=== PATIENT | female | born 1970 | race Asian ===

== ENCOUNTER 2019-07-04 10:10 | Emergency (ER) | payer OTHER ==
[~2019-07-04] VITALS: Ht 154.9 cm; Wt 48.2 kg
--- NOTE | 2019-07-04 10:49 | NUR ---
task RN note: pt presents to ED with c/o bilateral lower back pain, myalgia, and fevers x 4 days. pt states she has felt similar in the past with UTI. pt denies sore throat/cough. pt a&o, resps even and unlabored. pt ambultory to bathroom with steady gait, provided clean catch urine sample. urine sent to lab. pt attached to bp and spo2 monitors. call light in reach. warm blanket provided. report given to primary RN Sharmila.
[2019-07-04 10:53] VITALS: BP 128/74
[2019-07-04 10:58] LABS: MEAN CORPUSCULAR HEMOGLOBIN 29.1 pg (27.0-34.8); MEAN CORPUSCULAR HGB CONC 33.6 g/dL (32.4-35.8); MEAN CORPUSCULAR VOLUME 86.5 fL (80-100); MEAN PLATELET VOLUME 7.9 fL (7.4-10.4); PLATELET COUNT 299 x10^3/uL (130-400); RED BLOOD COUNT 4.68 x10^6/uL (3.82-5.3); RED CELL DISTRIBUTION WIDTH 13.3 % (9.6-15.2)
[2019-07-04 10:59] LABS: HCG UR SG 1.017 (1.003-1.030)
[2019-07-04 11:01] LABS: MICROSCOPIC INDICATED
[2019-07-04 11:06] LABS: ALANINE AMINOTRANSFERASE 16 U/L (12-78); ANION GAP 8 mmol/L (5-15); CALCIUM 7.9 mg/dL (8.5-10.1); CHLORIDE 108 mmol/L (98-107); CREATININE 0.65 mg/dL (0.55-1.02)
[2019-07-04 11:08] LABS: ALKALINE PHOSPHATASE 85 U/L (45-117); BILIRUBIN,TOTAL 0.2 mg/dL (0.2-1.0); TOTAL PROTEIN 7.6 g/dL (6.4-8.2)
[2019-07-04 11:28] LABS: MD YES
[2019-07-04 11:34] LABS: <PLATELET ESTIMATE> ADEQUATE; <PLT MORPHOLOGY> NORMAL PLT MORPH; <RBC MORPHOLOGY> NORMAL; BAND#(MANUAL) 0.08 x10^3/uL; BANDS%(MANUAL) 3 % (0-7); LYMPH#(MANUAL) 0.83 x10^3/uL (1-3.4); LYMPHS% (MANUAL) 33 % (22-44); MONOS#(MANUAL) 0.13 x10^3/uL (0.3-2.7); MONOS% (MANUAL) 5 % (2-9); SEG#(MANUAL) 1.48 x10^3/uL (1.8-6.8); SEGS% (MANUAL) 59 % (42-75)
== END 2019-07-04 12:13 | disposition home or self-care (01) ==
LOC: ED 11:45
DX: J18.9 Pneumonia, unspecified organism (principal); Z20.828 Contact with and (suspected) exposure to other viral communicable diseases; R07.9 Chest pain, unspecified
CPT/HCPCS: 36415; 71045; 80053; 81001; 81025; 85025; 99284; U0001

== ENCOUNTER 2019-07-06 10:38 | Emergency (ER) | payer OTHER ==
[~2019-07-06] VITALS: Ht 154.9 cm; Wt 48.0 kg
--- NOTE | 2019-07-06 10:47 | NUR ---
BIB [facility] FROM HOME FOR FEVER. DX WITH PNEUMONIA ON SATURDAY, DC'ED WITH RX OF ABX X2, PT UNCERTAIN OF NAME. PT CONCERNED ABOUT POSSIBILITY OF COVID. ERMD IN TO ASSESS AND EDUCATE PT. PT SHOWS NO SIGNS OF WOB. RESPIRATIONS EVEN, SATURATING WELL ON RA.
[2019-07-06] MEDS ORDERED: ACETAMINOPHEN 325 MG TABLET ONE (10:58)
[2019-07-06] MEDS ORDERED: ACETAMINOPHEN 325 MG TABLET PO ONE (11:00)
--- NOTE | 2019-07-06 11:10 | NUR ---
Pt medicated per emar. Pt educated on need to keep layers off due to fever, if she wanted this to decrease. Pt found with sweatshirt back on again. Awaiting lab and cxr results. NAD noted at this time. Side rails up, call light in reach.
[2019-07-06 11:50] LABS: BASOPHILS # (AUTO) 0.01 x10^3/uL (0-0.1); BASOPHILS % (AUTO) 0 % (0-1); EOSINOPHILS % (AUTO) 0 % (1-7); LYMPHOCYTES # (AUTO) 0.73 x10^3/uL (1-3.4); LYMPHOCYTES % (AUTO) 20 % (22-44); MD NO; MEAN CORPUSCULAR HEMOGLOBIN 29.1 pg (27.0-34.8); MEAN CORPUSCULAR HGB CONC 33.5 g/dL (32.4-35.8); MEAN PLATELET VOLUME 7.7 fL (7.4-10.4); MONOCYTES % (AUTO) 6 % (2-9); NEUTROPHILS # (AUTO) 2.75 x10^3/uL (1.8-6.8); NEUTROPHILS % (AUTO) 75 % (42-75); PLATELET COUNT 332 x10^3/uL (130-400); RED BLOOD COUNT 4.53 x10^6/uL (3.82-5.3); RED CELL DISTRIBUTION WIDTH 12.9 % (9.6-15.2)
[2019-07-06 11:54] LABS: CHLORIDE 105 mmol/L (98-107)
[2019-07-06 12:10] LABS: ANION GAP 9 mmol/L (5-15); CALCIUM 7.7 mg/dL (8.5-10.1); CREATININE 0.57 mg/dL (0.55-1.02)
--- NOTE | 2019-07-06 12:18 | NUR ---
Pt chart up for recheck.
[2019-07-06 13:06] VITALS: BP 105/58
== END 2019-07-06 13:08 | disposition home or self-care (01) ==
LOC: ED 12:57
DX: J12.9 Viral pneumonia, unspecified (principal); R00.0 Tachycardia, unspecified
CPT/HCPCS: 36415; 71045; 80048; 85025; 93005; 99285

== ENCOUNTER → 2019-12-15 | Outpatient (CLI) | payer OTHER ==
[2019-12-15 10:12] LABS: BASOPHILS % (AUTO) 1 % (0-1); EOSINOPHILS % (AUTO) 3 % (1-7); LYMPHOCYTES % (AUTO) 24 % (22-44); MEAN CORPUSCULAR HGB CONC 32.6 g/dL (32.4-35.8); MEAN PLATELET VOLUME 7.5 fL (7.4-10.4); MONOCYTES % (AUTO) 8 % (2-9); NEUTROPHILS % (AUTO) 64 % (42-75); PLATELET COUNT 527 x10^3/uL (130-400); RED BLOOD COUNT 4.55 x10^6/uL (3.82-5.3); RED CELL DISTRIBUTION WIDTH 13.8 % (9.6-15.2)
[2019-12-15 10:15] LABS: MD NO
[2019-12-15 10:34] LABS: ALANINE AMINOTRANSFERASE 9 U/L (12-78); ALBUMIN 2.9 g/dL (3.4-5.0); ANION GAP 7 mmol/L (5-15); CALCIUM 8.5 mg/dL (8.5-10.1); CHLORIDE 107 mmol/L (98-107); CHOLESTEROL, TOTAL 153 mg/dL (140-239); CREATININE 0.58 mg/dL (0.55-1.02)
[2019-12-15 10:36] LABS: HCT (SEDRATE) 37.7 % (34.6-47.8)
[2019-12-15 10:42] LABS: ALKALINE PHOSPHATASE 122 U/L (45-117); BILIRUBIN,TOTAL 0.4 mg/dL (0.2-1.0); C-REACTIVE PROTEIN, QUANT 2.55 mg/dL (0.02-0.49); CHOL/HDL RATIO 2.8; FREE T4 (FREE THYROXINE) 1.06 ng/dL (0.76-1.46); HDL CHOL % 36 % (28-40); HDL CHOLESTEROL (DIRECT) 55 mg/dL (40-60); LDL CHOLESTEROL,CALCULATED 81 mg/dL (54-169); LDL/HDL RATIO 1.5 (0.5-3.0); TOTAL PROTEIN 8.4 g/dL (6.4-8.2); TRIGLYCERIDES 86 mg/dL (50-200); VLDL CHOLESTEROL 17 mg/dL (0-25)
[2019-12-15 15:35] LABS: ANA SCREEN NEGATIVE (Negative)
== END | disposition home or self-care (01) ==
LOC: LAB 09:53
PROVIDERS: ATTEND Nurse Practitioner Family
DX: Z00.00 Encounter for general adult medical examination without abnormal findings (principal); L40.50 Arthropathic psoriasis, unspecified; L40.9 Psoriasis, unspecified; M79.641 Pain in right hand
CPT/HCPCS: 36415; 80053; 80061; 82306; 84439; 84443; 85025; 85651; 86038; 86140; 86430

== ENCOUNTER → 2020-02-04 | Outpatient (CLI) | payer OTHER ==
[2020-02-04 02:52] LABS: FREE T4 (FREE THYROXINE) 1.09 ng/dL (0.76-1.46)
== END | disposition home or self-care (01) ==
LOC: LAB 02:19
PROVIDERS: ATTEND Nurse Practitioner Family
DX: E03.9 Hypothyroidism, unspecified (principal)
CPT/HCPCS: 36415; 84439; 84443

== ENCOUNTER → 2020-02-24 | Outpatient (CLI) | payer OTHER ==
[2020-02-24 15:03] LABS: ALANINE AMINOTRANSFERASE 15 U/L (12-78); ANION GAP 6 mmol/L (5-15); BASOPHILS % (AUTO) 1 % (0-1); C-REACTIVE PROTEIN, QUANT 0.58 mg/dL (0.02-0.49); CALCIUM 8.7 mg/dL (8.5-10.1); CHLORIDE 109 mmol/L (98-107); CREATININE 0.63 mg/dL (0.55-1.02); EOSINOPHILS % (AUTO) 3 % (1-7); LYMPHOCYTES % (AUTO) 38 % (22-44); MEAN PLATELET VOLUME 7.8 fL (7.4-10.4); MONOCYTES % (AUTO) 11 % (2-9); NEUTROPHILS % (AUTO) 48 % (42-75); PLATELET COUNT 441 x10^3/uL (130-400); RED BLOOD COUNT 4.35 x10^6/uL (3.82-5.3); RED CELL DISTRIBUTION WIDTH 14.6 % (9.6-15.2)
[2020-02-24 15:04] LABS: MD NO
[2020-02-24 15:06] LABS: ALKALINE PHOSPHATASE 120 U/L (45-117); BILIRUBIN,TOTAL 0.2 mg/dL (0.2-1.0); TOTAL PROTEIN 7.8 g/dL (6.4-8.2)
[2020-02-24 15:14] LABS: HCT (SEDRATE) 35.6 % (34.6-47.8)
== END | disposition home or self-care (01) ==
LOC: LAB 14:23
PROVIDERS: ATTEND Specialist
DX: L40.50 Arthropathic psoriasis, unspecified (principal); Z79.899 Other long term (current) drug therapy
CPT/HCPCS: 36415; 80053; 85025; 85651; 86140

== ENCOUNTER → 2020-03-22 | Outpatient (CLI) | payer OTHER ==
[2020-03-22 15:33] LABS: FREE T4 (FREE THYROXINE) 1.15 ng/dL (0.76-1.46)
== END | disposition home or self-care (01) ==
LOC: LAB 14:59
PROVIDERS: ATTEND Nurse Practitioner Family
DX: E03.9 Hypothyroidism, unspecified (principal)
CPT/HCPCS: 36415; 84439; 84443

== ENCOUNTER → 2020-07-16 | Outpatient (CLI) | payer OTHER ==
[2020-07-16 03:39] LABS: BASOPHILS % (AUTO) 1 % (0-1); EOSINOPHILS % (AUTO) 4 % (1-7); LYMPHOCYTES % (AUTO) 42 % (22-44); MEAN CORPUSCULAR HEMOGLOBIN 29.7 pg (27.0-34.8); MEAN CORPUSCULAR HGB CONC 34.1 g/dL (32.4-35.8); MEAN PLATELET VOLUME 8.8 fL (7.4-10.4); MONOCYTES % (AUTO) 8 % (2-9); NEUTROPHILS % (AUTO) 45 % (42-75); PLATELET COUNT 316 x10^3/uL (130-400); RED BLOOD COUNT 4.46 x10^6/uL (3.82-5.3); RED CELL DISTRIBUTION WIDTH 14.3 % (9.6-15.2)
[2020-07-16 03:51] LABS: ALBUMIN 3.6 g/dL (3.4-5.0); ANION GAP 9 mmol/L (5-15); CALCIUM 8.5 mg/dL (8.5-10.1); CHLORIDE 107 mmol/L (98-107)
[2020-07-16 03:55] LABS: ALANINE AMINOTRANSFERASE 22 U/L (12-78); ALKALINE PHOSPHATASE 113 U/L (45-117); BILIRUBIN,TOTAL 0.2 mg/dL (0.2-1.0); C-REACTIVE PROTEIN, QUANT 0.84 mg/dL (0.02-0.49); CREATININE 0.77 mg/dL (0.55-1.02); TOTAL PROTEIN 7.9 g/dL (6.4-8.2)
[2020-07-16 04:08] LABS: MD NO
[2020-07-16 05:05] LABS: HCT (SEDRATE) 38.8 % (34.6-47.8)
== END | disposition home or self-care (01) ==
LOC: LAB 03:00
PROVIDERS: ATTEND Specialist
DX: L40.50 Arthropathic psoriasis, unspecified (principal); Z79.899 Other long term (current) drug therapy
CPT/HCPCS: 36415; 80053; 85025; 85651; 86140

== ENCOUNTER 2020-10-04 06:25 | Outpatient (CLI) | payer OTHER | END 2020-10-04 23:59 | disposition home or self-care (01) | LOC: LAB 06:25 | PROVIDERS: ATTEND Specialist | DX: L40.50 Arthropathic psoriasis, unspecified (principal); Z79.899 Other long term (current) drug therapy ==